=== PATIENT | female | born 1965 | race Caucasian/White ===

== ENCOUNTER 2019-10-23 13:57 | Emergency (ER) | payer MEDICAID ==
--- NOTE | 2019-10-23 14:10 | EDM.PDOC ---
ED HPI GENERAL MEDICAL PROBLEM - General Chief Complaint: General Stated Complaint: TOOTHACHE Time Seen by Provider: 10/23/19 14:10 Source of Information: Reports: Patient History Limitations: Reports: No Limitations - History of Present Illness INITIAL COMMENTS - FREE TEXT/NARRATIVE: pt arrived with a painful left upper incisor. She has noted slight swelling of the gum. Onset: Other (pain started last nite. ) Duration: Hour(s): Location: Reports: Face Associated Symptoms: Reports: No Other Symptoms Left Upper Tooth/Teeth Pain Score (Numeric/FACES): 8 - Related Data Allergies Allergy/AdvReac Type Severity Reaction Status Date / Time No Known Allergies Allergy Verified 10/23/19 14:12 Home Meds: Home Meds NK [No Known Home Meds] 10/23/19 [History] ED ROS GENERAL - Review of Systems Review Of Systems: See Below Constitutional: Reports: No Symptoms HEENT: Reports: Dental Pain Respiratory: Reports: No Symptoms Cardiovascular: Reports: No Symptoms Endocrine: Reports: No Symptoms GI/Abdominal: Reports: No Symptoms : Reports: No Symptoms Musculoskeletal: Reports: No Symptoms ED EXAM, GENERAL - Physical Exam Exam: See Below Free Text/Narrative:: pt has pain in the left upper gum line. There is slight swelling in the gum Exam Limited By: No Limitations General Appearance: Alert, Mild Distress Ears: Normal TMs Nose: Normal Inspection Throat/Mouth: Other ( the third tooth from the front in the left upper gum line is very tender and the gum does look infected. ) Neck: Normal Inspection Respiratory/Chest: No Respiratory Distress Course - Vital Signs Last Recorded V/S: Last Vital Signs Temp 35.4 C L 10/23/19 14:15 Pulse 69 10/23/19 14:15 Resp 18 10/23/19 14:15 BP 173/100 H 10/23/19 14:15 Pulse Ox 95 10/23/19 14:15 Departure - Departure Time of Disposition: 14:25 Disposition: Home, Self-Care 01 Condition: Fair Clinical Impression: Infected tooth - Discharge Information Referrals: PCP,None [Primary Care Provider] - Forms: ED Department Discharge Care Plan Goals: dental office will call- [facility] will call with a time, penvk 500mg tid for 10 days, Sepsis Event Note - Focused Exam Vital Signs: Vital Signs Temp Pulse Resp BP Pulse Ox 10/23/19 14:15 35.4 C L 69 18 173/100 H 95 10/23/19 14:12 35.4 C L 69 18 173/100 H 95 Date Exam was Performed: 10/23/19 Time Exam was Performed: 14:28
== END 2019-10-23 14:36 | disposition home or self-care (01) ==
LOC: JP.ED 13:57
DX: K04.7 Periapical abscess without sinus (principal)
CPT/HCPCS: 99282; 99283

== ENCOUNTER 2022-02-01 19:20 | Emergency (ER) | payer BC, MEDICAID ==
[2022-02-01] MEDS ORDERED: Ketorolac 10 MG Tab PO ONE (20:35)
== END 2022-02-01 20:59 | disposition home or self-care (01) ==
LOC: JP.ED 19:20
DX: K04.7 Periapical abscess without sinus (principal); F17.210 Nicotine dependence, cigarettes, uncomplicated; E66.9 Obesity, unspecified; Z68.30 Body mass index [BMI] 30.0-30.9, adult
CPT/HCPCS: 99282; A9270